=== PATIENT | male | born 1980 | race Caucasian/White ===

== ENCOUNTER 2021-06-26 00:54 | Emergency (ER) | payer OTHER ==
[~2021-06-26] VITALS: Ht 175.3 cm; Wt 72.7 kg
[2021-06-26 05:12] LABS: CLARITY,URINE CLOUDY (Clear); COLOR,URINE YELLOW (Yellow); GLUCOSE, URINE NEGATIVE (Neg); KETONES,URINE NEGATIVE (Neg); LEUKOCYTE ESTERASE ,URINE NEGATIVE (Neg); NITRITES, URINE NEGATIVE (Neg); OCCULT BLOOD,URINE SMALL (Neg); PH,URINE 8.5 (4.8-8.0); PROTEIN,URINE NEGATIVE (Neg); UROBILINOGEN,URINE 0.2 E.U/dL (0.2-1.0)
[2021-06-26 05:21] LABS: UA COLLECTION TYPE CLN CATCH MIDSTREAM
[2021-06-26 05:22] LABS: AMORPHOUS PHOSPHATES 3+; BACTERIA,URINE FEW /HPF (Neg); SQUAMOUS EPITHELIAL CELL,UR FEW /LPF (FEW); WBC,URINE NONE SEEN /HPF (0-4)
[2021-06-26 05:38] LABS: BASOPHILS % (AUTO) 0.1 % (0-1); EOSINOPHILS % (AUTO) 0.3 % (0-6); HEMOGLOBIN 12.6 g/dl (14.0-17.9); LYMPHOCYTES # (AUTO) 0.8 X10'3 (1.1-4.8); LYMPHOCYTES % (AUTO) 6.9 % (21-51); MEAN CORPUSCULAR HEMOGLOBIN 30.5 PG (27.0-31.0); MEAN CORPUSCULAR HGB CONC 33.3 g/dL (33.0-36.5); MEAN CORPUSCULAR VOLUME 91.5 FL (78-98); MEAN PLATELET VOLUME 8.7 FL (7.4-10.4); MONOCYTES # (AUTO) 0.5 X10'3 (0-0.9); MONOCYTES % (AUTO) 4.1 % (2-12); NEUTROPHILS # (AUTO) 10.7 X10'3 (1.8-7.7); NEUTROPHILS % (AUTO) 88.6 % (42-75); PLATELET COUNT 257 X10'3 (140-440); RED BLOOD COUNT 4.15 X10'6 (4.70-6.10); RED CELL DISTRIBUTION WIDTH 14.4 % (11.5-14.5)
[2021-06-26] MEDS ORDERED: normal saline 1000ML IV soln IVB ONE (05:45)
[2021-06-26] MEDS ORDERED: pantoprazole IV 40 MG in normal saline 100ml IV soln 100 ML IV ONE (05:45)
[2021-06-26 05:50] LABS: ALANINE AMINOTRANSFERASE 66 U/L (12-78); ALBUMIN 3.8 G/DL (3.4-5.0); ALBUMIN/GLOBULIN RATIO 1.2 (1.1-1.5); ALKALINE PHOSPHATASE 92 IU/L (46-116); ANION GAP 4 (8-16); ASPARTATE AMINO TRANSFERASE 28 U/L (10-37); BILIRUBIN,TOTAL 0.6 MG/DL (0.1-1.0); BLOOD UREA NITROGEN 16 MG/DL (7-18); BUN/CREATININE RATIO 23.5 (5.4-32.0); CHLORIDE 108 MMOL/L (99-107); CREATININE 0.68 MG/DL (0.60-1.10); GLUCOSE 109 MG/DL (70-104); LIPASE 107 U/L (73-393); POTASSIUM 4.2 MMOL/L (3.5-5.1); SODIUM 143 MMOL/L (135-145); TOTAL CARBON DIOXIDE 31.3 MMOL/L (24-32); TOTAL PROTEIN 6.9 G/DL (6.4-8.2); eGFR > 90 ML/MIN
[2021-06-26] MEDS ORDERED: pantoprazole 40MG/NS 100ML BAG 100 ML IV ONE (05:50)
[2021-06-26] MEDS ORDERED: PANT-47 PO (05:56)
[2021-06-26] MEDS ORDERED: ONDA8TAB13 PO (05:56)
[2021-06-26 07:15] VITALS: BP 128/77
== END 2021-06-26 07:21 | disposition home or self-care (01) ==
LOC: ER 00:55
DX: R10.12 Left upper quadrant pain (principal); R10.13 Epigastric pain; R11.10 Vomiting, unspecified; F12.90 Cannabis use, unspecified, uncomplicated; Z79.899 Other long term (current) drug therapy
CPT/HCPCS: 36415; 71045; 80053; 81001; 83690; 85025; 93005; 96365; 99285; C9113; J7030

== ENCOUNTER 2021-07-03 20:27 | Emergency (ER) | payer OTHER ==
[~2021-07-03] VITALS: Ht 175.3 cm; Wt 77.3 kg
[~2021-07-03 20:27] MED LIST: ONDA8TAB13 PO; PANT-47 PO
[2021-07-03 21:04] LABS: BASOPHILS % (AUTO) 0.2 % (0-1); EOSINOPHILS # (AUTO) 0.2 X10'3 (0-0.9); EOSINOPHILS % (AUTO) 1.6 % (0-6); HEMATOCRIT 40.5 % (42.0-52.0); HEMOGLOBIN 13.6 g/dl (14.0-17.9); LYMPHOCYTES # (AUTO) 1.6 X10'3 (1.1-4.8); LYMPHOCYTES % (AUTO) 13.7 % (21-51); MEAN CORPUSCULAR HGB CONC 33.7 g/dL (33.0-36.5); MONOCYTES # (AUTO) 0.7 X10'3 (0-0.9); MONOCYTES % (AUTO) 5.5 % (2-12); NEUTROPHILS # (AUTO) 9.5 X10'3 (1.8-7.7); PLATELET COUNT 297 X10'3 (140-440); RED CELL DISTRIBUTION WIDTH 13.9 % (11.5-14.5)
[2021-07-03 21:17] LABS: ALANINE AMINOTRANSFERASE 39 U/L (12-78); ALBUMIN 4.3 G/DL (3.4-5.0); ALBUMIN/GLOBULIN RATIO 1.3 (1.1-1.5); ALKALINE PHOSPHATASE 101 IU/L (46-116); ANION GAP 4 (8-16); ASPARTATE AMINO TRANSFERASE 21 U/L (10-37); BILIRUBIN,TOTAL 0.5 MG/DL (0.1-1.0); BLOOD UREA NITROGEN 18 MG/DL (7-18); BUN/CREATININE RATIO 18.8 (5.4-32.0); CALCIUM 9.3 MG/DL (8.5-10.1); CHLORIDE 106 MMOL/L (99-107); CREATININE 0.96 MG/DL (0.60-1.10); GLUCOSE 108 MG/DL (70-104); LIPASE < 50 U/L (73-393); POTASSIUM 3.9 MMOL/L (3.5-5.1); SODIUM 140 MMOL/L (135-145); TOTAL CARBON DIOXIDE 29.9 MMOL/L (24-32); TOTAL PROTEIN 7.6 G/DL (6.4-8.2); eGFR 86 ML/MIN
[2021-07-03] MEDS ORDERED: morphine 2 MG/ML inj. syringe IV ONE (23:05)
[2021-07-04 00:45] LABS: CLARITY,URINE CLOUDY (Clear); COLOR,URINE YELLOW (Yellow); GLUCOSE, URINE NEGATIVE (Neg); KETONES,URINE >=80 mg/dl (Neg); LEUKOCYTE ESTERASE ,URINE NEGATIVE (Neg); NITRITES, URINE NEGATIVE (Neg); OCCULT BLOOD,URINE LARGE (Neg); PROTEIN,URINE TRACE mg/dl (Neg); UROBILINOGEN,URINE 0.2 E.U/dL (0.2-1.0)
[2021-07-04 00:52] LABS: UA COLLECTION TYPE URINAL
[2021-07-04 00:54] LABS: RBC,URINE TNTC /HPF (0-2)
[2021-07-04 00:55] LABS: BACTERIA,URINE 1+ /HPF (Neg); MUCUS STRANDS FEW /LPF (Neg); SQUAMOUS EPITHELIAL CELL,UR FEW /LPF (FEW)
[2021-07-04 00:56] LABS: AMORPHOUS PHOSPHATES 1+
[2021-07-04] MEDS ORDERED: ketorolac trometh. 30mg/ml inj. IV ONE (01:25)
[2021-07-04] MEDS ORDERED: cefTRIAXone 1g/NS 100ml IVPB 100 ML IV ONE (02:05)
[2021-07-04] MEDS ORDERED: CEPH-585 PO (02:57)
[2021-07-04] MEDS ORDERED: HYDR-3965 PO (02:57)
[2021-07-04 03:38] VITALS: BP 128/79
== END 2021-07-04 03:40 | disposition home or self-care (01) ==
LOC: ER 20:29
DX: N20.0 Calculus of kidney (principal)
CPT/HCPCS: 36415; 74176; 80053; 81001; 83690; 85025; 87088; 96365; 96375; 99284; J0696; J1885; J2270

== ENCOUNTER 2021-07-07 02:15 | Inpatient (IN) | payer OTHER ==
[2021-07-07] VITALS (14 sets, daily range): BP systolic 122–172; BP diastolic 62–87
[~2021-07-07] VITALS: Ht 170.2 cm; Wt 72.7 kg
[~2021-07-07 02:15] MED LIST changes: +CEPH-585 PO; +HYDR-3965 PO
[2021-07-07] MEDS ORDERED: ondansetron/PF 4mg/2ml inj IV ONE (02:45)
[2021-07-07] MEDS ORDERED: normal saline 1000ml 1,000 ML IV ONE (02:45)
[2021-07-07] MEDS ORDERED: morphine 4 MG/ML inj SYRINge IV ONE ×2 (02:45→03:15)
[2021-07-07 03:13] LABS: BASOPHILS # (AUTO) 0.1 X10'3 (0-0.2); BASOPHILS % (AUTO) 1.2 % (0-1); EOSINOPHILS # (AUTO) 0.3 X10'3 (0-0.9); EOSINOPHILS % (AUTO) 3.1 % (0-6); HEMATOCRIT 39.8 % (42.0-52.0); HEMOGLOBIN 13.5 g/dl (14.0-17.9); LYMPHOCYTES # (AUTO) 2.6 X10'3 (1.1-4.8); LYMPHOCYTES % (AUTO) 31.5 % (21-51); MEAN CORPUSCULAR HEMOGLOBIN 31.2 PG (27.0-31.0); MEAN CORPUSCULAR HGB CONC 33.9 g/dL (33.0-36.5); MEAN CORPUSCULAR VOLUME 91.9 FL (78-98); MEAN PLATELET VOLUME 9.4 FL (7.4-10.4); MONOCYTES # (AUTO) 0.8 X10'3 (0-0.9); MONOCYTES % (AUTO) 9.1 % (2-12); NEUTROPHILS # (AUTO) 4.6 X10'3 (1.8-7.7); NEUTROPHILS % (AUTO) 55.1 % (42-75); PLATELET COUNT 291 X10'3 (140-440); RED BLOOD COUNT 4.32 X10'6 (4.70-6.10); WHITE BLOOD COUNT 8.3 X10'3 (4.5-11.0)
[2021-07-07 03:28] LABS: ALANINE AMINOTRANSFERASE 27 U/L (12-78); ALBUMIN 3.9 G/DL (3.4-5.0); ALBUMIN/GLOBULIN RATIO 1.2 (1.1-1.5); ALKALINE PHOSPHATASE 101 IU/L (46-116); ANION GAP 13 (8-16); ASPARTATE AMINO TRANSFERASE 12 U/L (10-37); BILIRUBIN,TOTAL 0.3 MG/DL (0.1-1.0); BLOOD UREA NITROGEN 15 MG/DL (7-18); BUN/CREATININE RATIO 15.6 (5.4-32.0); CHLORIDE 104 MMOL/L (99-107); CREATININE 0.96 MG/DL (0.60-1.10); GLUCOSE 104 MG/DL (70-104); POTASSIUM 3.3 MMOL/L (3.5-5.1); SODIUM 141 MMOL/L (135-145); TOTAL CARBON DIOXIDE 24.4 MMOL/L (24-32); TOTAL PROTEIN 7.2 G/DL (6.4-8.2); eGFR 86 ML/MIN
[2021-07-07] MEDS ORDERED: ketorolac trometh. 30mg/ml inj. IV ONE (03:30)
[2021-07-07] MEDS ORDERED: LORazepam 2 mg/ml vial IV ONE (03:30)
[2021-07-07] MEDS ORDERED: fentaNYL/PF 50MCG/1 ML 2ML syringe IV ONE (03:30)
[2021-07-07 05:01] LABS: CLARITY,URINE CLOUDY (Clear); COLOR,URINE YELLOW (Yellow); GLUCOSE, URINE NEGATIVE (Neg); KETONES,URINE NEGATIVE (Neg); LEUKOCYTE ESTERASE ,URINE NEGATIVE (Neg); NITRITES, URINE NEGATIVE (Neg); OCCULT BLOOD,URINE SMALL (Neg); PH,URINE 7.5 (4.8-8.0); PROTEIN,URINE NEGATIVE (Neg); UROBILINOGEN,URINE 0.2 E.U/dL (0.2-1.0)
[2021-07-07 05:16] LABS: UA COLLECTION TYPE NON-SPECIFIED
[2021-07-07 05:17] LABS: BACTERIA,URINE FEW /HPF (Neg); MUCUS STRANDS NONE SEEN /LPF (Neg); SQUAMOUS EPITHELIAL CELL,UR NONE SEEN /LPF (FEW); WBC,URINE 0-4 /HPF (0-4)
[2021-07-07 05:18] LABS: AMORPHOUS PHOSPHATES 2+
[2021-07-07] MEDS ORDERED: magnesium hydroxide 30ml (MOM) UD suspension PO PRN (07:55)
[2021-07-07] MEDS ORDERED: mag hydrox/Alum hydrox/simeth 30ml oral suspension PO PRN (07:55)
[2021-07-07] MEDS ORDERED: acetaminophen 325mg tablet PO PRN ×2 (07:55)
[2021-07-07] MEDS ORDERED: morphine 2 MG/ML inj. syringe IV PRN ×3 (07:55→13:10)
[2021-07-07] MEDS ORDERED: metoclopramide 5 mg/ml inj IV PRN (07:55)
[2021-07-07] MEDS ORDERED: HYDROcodone/acetaminophen 5mg/325mg tablet PO PRN (07:55)
--- NOTE | 2021-07-07 10:11 | NUR ---
pt going for sx at 1200 pm today ,npo since last night.
[2021-07-07] MEDS ORDERED: HYDR-3964 PO (10:39)
[2021-07-07] MEDS ORDERED: CEPH250T PO (10:39)
[2021-07-07] MEDS ORDERED: PANT40TA54 PO (10:39)
[2021-07-07] MEDS ORDERED: ONDA8TAB13 PO (10:40)
[2021-07-07] MEDS: docusate sod 100mg capsule PO SCH ×2 (10:48→20:00)
[2021-07-07] MEDS: ringers solution, lacted 1,000 ML IV SCH (10:57)
[2021-07-07] MEDS: normal saline 1000ml 1,000 ML IV SCH ×2 (10:57→15:05)
[2021-07-07] MEDS ORDERED: famotidine/PF 10 mg/ml inj IV ONE (11:00)
--- NOTE | 2021-07-07 11:11 | NUR ---
dr solorio gave verbal order for dilaudid 0.5 mg iv q2 hr prn for pain .informed pt is going for surgery at 1200 pm.
--- NOTE | 2021-07-07 11:35 | NUR ---
TRIED TO GIVE REPORT TO [facility] BUT NO ONE HAS ANSWERED THE CALL.
--- NOTE | 2021-07-07 11:40 | NUR ---
PT WENT TO [facility] ,CALLED PHARMACY AND SPOKE TO MAC AND INFORMED TO SENT THE MEDS UPSTAIRS TO [facility] PT IS NOT HERE.
[2021-07-07] MEDS ORDERED: iohexol 300 MG/1 ML 50ml polymer ONE (12:00)
[2021-07-07] MEDS ORDERED: midazolam 1 mg/ML 2ml injection ONE (12:25)
[2021-07-07] MEDS ORDERED: FENTANYL CITRATE/PF 50 MCG/1 ML VIAL ONE (12:25)
[2021-07-07] MEDS ORDERED: propofol inj 20 ML IV ONE (12:27)
--- NOTE | 2021-07-07 13:04 | NUR ---
Received from OR via JOANIE , accompanied by Anesthesiologist JESSICA and report given by Anesthesiolgist. PATIENT WITH 18G PIV IN RIGHT AC. VSS. 10L MASK ON WITH 100% SATURATIONS. Addendum: 07/07/21 at 1312 by Shreyas Rosario RN RN Amended: Links added.
[2021-07-07] MEDS ORDERED: morphine 4 MG/ML inj SYRINge IV PRN (13:10)
[2021-07-07] MEDS ORDERED: proCHLORperazine 10 MG/2 ml inj IV PRN (13:10)
[2021-07-07] MEDS ORDERED: meperidine/PF 25mg/ml syringe IV PRN ×3 (13:10)
[2021-07-07] MEDS ORDERED: ringers solution, lacted 1,000 ML IV SCH (13:10)
[2021-07-07] MEDS ORDERED: ondansetron/PF 4mg/2ml inj IV PRN (13:10)
--- NOTE | 2021-07-07 14:36 | NUR ---
Patient in room ED 10. I have received report from Shreyas GILLIAM and had the opportunity to ask questions and awaiting patients arrival
--- NOTE | 2021-07-07 14:39 | NUR ---
TRANSFER: PATIENT HAS MET ALL CRITERIA FOR TRANSFER TO THE SURGICAL/PAPI/PCU/ORTHO/ICU FLOOR. VSS. DRESSINGS INTACT. BED LOW, CALL LIGHT PRESENT AND 2 RAILS UP. RN PRESENT TO ACCEPT CARE OF PATIENT AND REPORT HAS BEEN CALLED. PALL QUESTIONS ANSWERED TO ACCEPTING RN. MANE GONZALES TOOK PATIENT TO SURGICAL FLOOR WITH HIS ONE BAG OF LABELED BELONGINGS. VSS. Addendum: 07/07/21 at 1450 by Shreyas Rosario RN, RN Amended: Links added.
--- NOTE | 2021-07-07 15:01 | NUR ---
patient arrived on floor with pain 8/10. Voiding red tinged urine very painful to void. commenced on post op vitals IV to Right AC CDI.
[2021-07-07] MEDS: ondansetron/PF 4mg/2ml inj IV PRN (15:20)
--- NOTE | 2021-07-07 15:29 | NUR ---
morphine 4mg given for pain 10/10 and zofran for nausea. spoke with Dr Packer [facility] regards pain control. OK to give dilaudid if morphine is ineffective.
[2021-07-07] MEDS: HYDROmorphone inj. 0.5 MG/0.5 ML DISP.SYRIN IV PRN ×2 (15:52→20:24)
[2021-07-07] MEDS: HYDROcodone/acetaminophen 10/325mg tab PO PRN (17:43)
--- NOTE | 2021-07-07 18:40 | NUR ---
patient given dilaudid and norco for pain see emar. Pain increses when voiding . urine remains reddish color. Report given to Candelaria GILLIAM
[2021-07-08] VITALS: BP 151/81
[2021-07-08] MEDS: HYDROcodone/acetaminophen 10/325mg tab PO PRN (00:57)
[2021-07-08] MEDS: normal saline 1000ml 1,000 ML IV SCH ×2 (04:16→13:55)
[2021-07-08] MEDS: ringers solution, lacted 1,000 ML IV SCH (05:23)
[2021-07-08] MEDS: HYDROmorphone inj. 0.5 MG/0.5 ML DISP.SYRIN IV PRN ×2 (05:24→09:54)
--- NOTE | 2021-07-08 06:46 | NUR ---
Patient in room [facility]. I have received report from Candelaria GILLIAM and had the opportunity to ask questions and assume patient care.
[2021-07-08 07:12] VITALS: BP 124/72
[2021-07-08] MEDS: docusate sod 100mg capsule PO SCH ×3 (07:28→19:44)
[2021-07-08 07:33] LABS: BASOPHILS % (AUTO) 0.3 % (0-1); EOSINOPHILS % (AUTO) 0.2 % (0-6); HEMATOCRIT 36.4 % (42.0-52.0); HEMOGLOBIN 12.3 g/dl (14.0-17.9); LYMPHOCYTES # (AUTO) 1.6 X10'3 (1.1-4.8); LYMPHOCYTES % (AUTO) 14.1 % (21-51); MEAN CORPUSCULAR HEMOGLOBIN 31.2 PG (27.0-31.0); MEAN CORPUSCULAR HGB CONC 33.7 g/dL (33.0-36.5); MEAN CORPUSCULAR VOLUME 92.3 FL (78-98); MEAN PLATELET VOLUME 9.8 FL (7.4-10.4); MONOCYTES # (AUTO) 0.8 X10'3 (0-0.9); MONOCYTES % (AUTO) 7.3 % (2-12); NEUTROPHILS # (AUTO) 9.1 X10'3 (1.8-7.7); NEUTROPHILS % (AUTO) 78.1 % (42-75); PLATELET COUNT 250 X10'3 (140-440); RED BLOOD COUNT 3.94 X10'6 (4.70-6.10); RED CELL DISTRIBUTION WIDTH 14.4 % (11.5-14.5); WHITE BLOOD COUNT 11.6 X10'3 (4.5-11.0)
[2021-07-08 08:06] LABS: ALBUMIN 3.3 G/DL (3.4-5.0); ANION GAP 7 (8-16); BLOOD UREA NITROGEN 9 MG/DL (7-18); CALCIUM 8.3 MG/DL (8.5-10.1); CHLORIDE 108 MMOL/L (99-107); CREATININE 0.75 MG/DL (0.60-1.10); GLUCOSE 89 MG/DL (70-104); POTASSIUM 3.4 MMOL/L (3.5-5.1); SODIUM 142 MMOL/L (135-145); TOTAL CARBON DIOXIDE 27.3 MMOL/L (24-32); eGFR > 90 ML/MIN
[2021-07-08] MEDS ORDERED: potassium Cl 20 mEq SR tablet PO STA (10:26)
[2021-07-08] MEDS ORDERED: morphine 4 MG/ML inj SYRINge IM ONE (10:30)
[2021-07-08] MEDS ORDERED: morphine 4 MG/ML inj SYRINge IV ONE (10:45)
--- NOTE | 2021-07-08 11:05 | NUR ---
Malnutrition consult: Pt reports 2-13 lb wt loss with decreased appetite per malnutrition risk screen with RN. Current documented wt isn't scaled though is stable with recent wt hx in EMR. Pt admit for nephrolithiasis, POD #1 s/p cystoscopy with bilateral ureteral stent placement, documented with 10/10 pain. Currently on a regular diet, documented to have refused first meal post-op. Pt with no documented decrease in muscle strength or edema. Pt currently lacks a minimum of two criteria for malnutrition. Will continue to follow and further monitor qualifying criteria for malnutrition. Addendum: 07/08/21 at [address] Amended: Links added.
--- NOTE | 2021-07-08 11:13 | NUR ---
PAGER ID: [phone] MESSAGE: Erich Surg Re: 350b Nicole, Patient states no nausea pain down from 10 to 7, and patient states works much better. Thanks Erich
[2021-07-08 11:47] VITALS: BP 147/66
[2021-07-08] MEDS: cefTRIAXone 1g/NS 100ml IVPB 100 ML IV SCH (12:46)
[2021-07-08] MEDS: morphine 4 MG/ML inj SYRINge IV PRN ×4 (14:02→22:47)
[2021-07-08] MEDS: ondansetron/PF 4mg/2ml inj IV PRN (16:28)
--- NOTE | 2021-07-08 18:15 | NUR ---
Patient in room [facility]. I have received report from MANE Jung and had the opportunity to ask questions and assume patient care.
--- NOTE | 2021-07-08 18:29 | NUR ---
Problems reprioritized. Patient report given, questions answered & plan of care reviewed with Ayesha GILLIAM.
[2021-07-08 20:00] VITALS: BP 138/76
[2021-07-09 00:01] VITALS: BP 138/78
[2021-07-09] MEDS: normal saline 1000ml 1,000 ML IV SCH ×2 (00:24→09:06)
[2021-07-09] MEDS: morphine 4 MG/ML inj SYRINge IV PRN ×3 (00:45→05:40)
[2021-07-09] MEDS: ringers solution, lacted 1,000 ML IV SCH (02:20)
[2021-07-09] MEDS: ondansetron/PF 4mg/2ml inj IV PRN (03:19)
--- NOTE | 2021-07-09 06:48 | NUR ---
Problems reprioritized. Patient report given, questions answered & plan of care reviewed with MANE Shah.
[2021-07-09 07:00] VITALS: BP 151/85
--- NOTE | 2021-07-09 07:02 | NUR ---
Patient in room [facility]. I have received report from Ayesha GILLIAM and had the opportunity to ask questions and assume patient care.
[2021-07-09] MEDS: docusate sod 100mg capsule PO SCH (08:00)
[2021-07-09] MEDS: cefTRIAXone 1g/NS 100ml IVPB 100 ML IV SCH (08:02)
[2021-07-09 08:45] LABS: BASOPHILS % (AUTO) 0.3 % (0-1); EOSINOPHILS % (AUTO) 0.5 % (0-6); HEMATOCRIT 38.8 % (42.0-52.0); HEMOGLOBIN 12.9 g/dl (14.0-17.9); LYMPHOCYTES # (AUTO) 1.7 X10'3 (1.1-4.8); LYMPHOCYTES % (AUTO) 19.5 % (21-51); MEAN CORPUSCULAR HEMOGLOBIN 30.6 PG (27.0-31.0); MEAN CORPUSCULAR HGB CONC 33.3 g/dL (33.0-36.5); MEAN PLATELET VOLUME 9.7 FL (7.4-10.4); MONOCYTES # (AUTO) 0.8 X10'3 (0-0.9); MONOCYTES % (AUTO) 8.5 % (2-12); NEUTROPHILS # (AUTO) 6.4 X10'3 (1.8-7.7); NEUTROPHILS % (AUTO) 71.2 % (42-75); PLATELET COUNT 253 X10'3 (140-440); RED BLOOD COUNT 4.22 X10'6 (4.70-6.10); RED CELL DISTRIBUTION WIDTH 14.1 % (11.5-14.5); WHITE BLOOD COUNT 8.9 X10'3 (4.5-11.0)
[2021-07-09 08:59] LABS: ALBUMIN 3.6 G/DL (3.4-5.0); BLOOD UREA NITROGEN 9 MG/DL (7-18); BUN/CREATININE RATIO 12.2 (5.4-32.0); CALCIUM 8.5 MG/DL (8.5-10.1); CHLORIDE 103 MMOL/L (99-107); CREATININE 0.74 MG/DL (0.60-1.10); GLUCOSE 85 MG/DL (70-104); POTASSIUM 3.9 MMOL/L (3.5-5.1); SODIUM 142 MMOL/L (135-145); eGFR > 90 ML/MIN
[2021-07-09 09:00] LABS: ANION GAP 10 (8-16); TOTAL CARBON DIOXIDE 29.3 MMOL/L (24-32)
[2021-07-09] MEDS: HYDROcodone/acetaminophen 10/325mg tab PO PRN ×2 (09:04→13:27)
[2021-07-09 11:00] VITALS: BP 141/72
[2021-07-09] MEDS ORDERED: HYDROcodone/acetaminophen 10/325mg tab PO PRN (11:15)
[2021-07-09] MEDS ORDERED: ONDA4TAB12 PO (11:33)
[2021-07-09] MEDS ORDERED: HYDR-3965 PO (11:33)
[2021-07-09] MEDS ORDERED: SULF1TAB49 PO (13:00)
--- NOTE | 2021-07-09 14:10 | NUR ---
PT DC TO HOME WITH . PT IS A&O X4 AND IN NO APPARENT DISTRESS. PT VERBALIZES UNDERSTANDING OF ALL DC ORDERS. PT KNOWS THE IMPORTANCE OF FOLLOWING UP WITH DR. HERNANDEZ. PT'S IV CATH WAS REMOVED INTACT. PT GOT DRESSED, TOOK HIS [employer] AND PHONE AND WAS WHEELED TO THE FRONT WHERE HIS TOOK HIM HOME.
[2021-07-10] MEDS ORDERED: OXYB5TAB16 PO (09:36)
[2021-07-10] MEDS ORDERED: OXYC-150 PO (23:03)
== END 2021-07-09 14:10 | disposition home or self-care (01) | DRG 661 ==
LOC: ER 02:15 → ED HOLD 07:53 → SUR 3N 15:25
PROVIDERS: ADMIT Internal Medicine; ATTEND Internal Medicine
PROC: 0T788DZ Dilation of Bilateral Ureters with Intraluminal Device, Via Natural or Artificial Opening Endoscopic (ICD-10-PCS; principal; 2021-07-07 12:17)
DX: N13.2 Hydronephrosis with renal and ureteral calculous obstruction (principal); Z20.822 Contact with and (suspected) exposure to COVID-19; F12.90 Cannabis use, unspecified, uncomplicated; Z79.899 Other long term (current) drug therapy
CPT/HCPCS: 36415; 74176; 76000; 80048; 80053; 81001; 85025; 87635; 96361; 96374; 96375; 99285; A4618; C1758; C1769; C2617; G0378; J0696; J1170; J1885; J2060; J2175; J2250; J2270; J2405; J2704; J2765; J3010; J3490; J7030; J7120; Q9967

== ENCOUNTER 2021-07-10 06:33 | Emergency (ER) | payer OTHER ==
[~2021-07-10] VITALS: Ht 172.7 cm; Wt 73.0 kg
[~2021-07-10 06:33] MED LIST changes: -CEPH-585 PO; +HYDR-3964 PO; +ONDA4TAB12 PO; -PANT-47 PO; +PANT40TA54 PO; +SULF1TAB49 PO
[2021-07-10] MEDS ORDERED: ketorolac trometh. 30mg/ml inj. IV ONE (07:10)
[2021-07-10] MEDS ORDERED: normal saline 1000ML IV soln IVB ONE ×2 (07:10)
[2021-07-10] MEDS ORDERED: morphine 10mg/ml inj. IV ONE (07:10)
[2021-07-10] MEDS ORDERED: diphenhydrAMINE 50 mg/ml inj IV ONE (07:10)
[2021-07-10] MEDS ORDERED: metoclopramide 5 mg/ml inj IV ONE (07:10)
[2021-07-10 07:39] LABS: BASOPHILS # (AUTO) 0.1 X10'3 (0-0.2); BASOPHILS % (AUTO) 0.6 % (0-1); EOSINOPHILS % (AUTO) 0.1 % (0-6); HEMATOCRIT 42.1 % (42.0-52.0); HEMOGLOBIN 14.5 g/dl (14.0-17.9); LYMPHOCYTES # (AUTO) 0.8 X10'3 (1.1-4.8); LYMPHOCYTES % (AUTO) 6.8 % (21-51); MEAN CORPUSCULAR HEMOGLOBIN 31.3 PG (27.0-31.0); MEAN CORPUSCULAR HGB CONC 34.3 g/dL (33.0-36.5); MEAN PLATELET VOLUME 9.7 FL (7.4-10.4); MONOCYTES # (AUTO) 0.6 X10'3 (0-0.9); MONOCYTES % (AUTO) 5.1 % (2-12); NEUTROPHILS # (AUTO) 10.9 X10'3 (1.8-7.7); NEUTROPHILS % (AUTO) 87.4 % (42-75); PLATELET COUNT 302 X10'3 (140-440); RED BLOOD COUNT 4.63 X10'6 (4.70-6.10); RED CELL DISTRIBUTION WIDTH 14.1 % (11.5-14.5); WHITE BLOOD COUNT 12.5 X10'3 (4.5-11.0)
[2021-07-10 07:58] LABS: ALANINE AMINOTRANSFERASE 31 U/L (12-78); ALBUMIN 4.3 G/DL (3.4-5.0); ALBUMIN/GLOBULIN RATIO 1.2 (1.1-1.5); ALKALINE PHOSPHATASE 98 IU/L (46-116); ANION GAP 14 (8-16); ASPARTATE AMINO TRANSFERASE 19 U/L (10-37); BLOOD UREA NITROGEN 12 MG/DL (7-18); BUN/CREATININE RATIO 12.6 (5.4-32.0); CALCIUM 9.7 MG/DL (8.5-10.1); CHLORIDE 103 MMOL/L (99-107); CREATININE 0.95 MG/DL (0.60-1.10); GLUCOSE 116 MG/DL (70-104); LIPASE 62 U/L (73-393); POTASSIUM 3.6 MMOL/L (3.5-5.1); SODIUM 141 MMOL/L (135-145); TOTAL CARBON DIOXIDE 23.9 MMOL/L (24-32); TOTAL PROTEIN 7.8 G/DL (6.4-8.2); eGFR 87 ML/MIN
[2021-07-10 08:14] LABS: CLARITY,URINE BLOODY (Clear); COLOR,URINE RED (Yellow); UA COLLECTION TYPE VOIDED
[2021-07-10 08:19] LABS: BACTERIA,URINE FEW /HPF (Neg); MUCUS STRANDS NONE SEEN /LPF (Neg); RBC,URINE TNTC /HPF (0-2); SQUAMOUS EPITHELIAL CELL,UR NONE SEEN /LPF (FEW)
[2021-07-10] MEDS ORDERED: OXYB5TAB16 PO (09:36)
[2021-07-10 10:53] VITALS: BP 143/82
[2021-07-10] MEDS ORDERED: OXYC-150 PO (23:03)
== END 2021-07-10 10:54 | disposition home or self-care (01) ==
LOC: ER 06:34
DX: N20.0 Calculus of kidney (principal); Z87.442 Personal history of urinary calculi; F12.10 Cannabis abuse, uncomplicated; Z79.899 Other long term (current) drug therapy
CPT/HCPCS: 36415; 80053; 81001; 83690; 84145; 85025; 87088; 96361; 96374; 96375; 99284; J1200; J1885; J2274; J2765; J7030

== ENCOUNTER 2021-07-10 18:54 | Emergency (ER) | payer OTHER ==
[~2021-07-10] VITALS: Ht 172.7 cm; Wt 71.2 kg
[~2021-07-10 18:54] MED LIST changes: +OXYB5TAB16 PO
[2021-07-10] MEDS ORDERED: morphine 4 MG/ML inj SYRINge IV ONE (20:00)
[2021-07-10] MEDS ORDERED: ondansetron/PF 4mg/2ml inj IV ONE (20:00)
[2021-07-10 20:18] LABS: BASOPHILS % (AUTO) 0.3 % (0-1); EOSINOPHILS % (AUTO) 0.1 % (0-6); HEMATOCRIT 39.6 % (42.0-52.0); HEMOGLOBIN 13.5 g/dl (14.0-17.9); LYMPHOCYTES # (AUTO) 1.5 X10'3 (1.1-4.8); LYMPHOCYTES % (AUTO) 9.5 % (21-51); MEAN CORPUSCULAR HEMOGLOBIN 31.5 PG (27.0-31.0); MEAN CORPUSCULAR HGB CONC 34.1 g/dL (33.0-36.5); MEAN CORPUSCULAR VOLUME 92.4 FL (78-98); MEAN PLATELET VOLUME 8.8 FL (7.4-10.4); MONOCYTES % (AUTO) 6.5 % (2-12); NEUTROPHILS # (AUTO) 13.2 X10'3 (1.8-7.7); NEUTROPHILS % (AUTO) 83.6 % (42-75); PLATELET COUNT 289 X10'3 (140-440); RED BLOOD COUNT 4.28 X10'6 (4.70-6.10); WHITE BLOOD COUNT 15.8 X10'3 (4.5-11.0)
[2021-07-10 20:19] LABS: COLOR,URINE RED (Yellow); UA COLLECTION TYPE CLN CATCH MIDSTREAM
[2021-07-10 20:20] LABS: CLARITY,URINE CLOUDY (Clear)
[2021-07-10 20:33] LABS: ALANINE AMINOTRANSFERASE 28 U/L (12-78); ALBUMIN/GLOBULIN RATIO 1.2 (1.1-1.5); ALKALINE PHOSPHATASE 91 IU/L (46-116); ANION GAP 14 (8-16); ASPARTATE AMINO TRANSFERASE 18 U/L (10-37); BILIRUBIN,TOTAL 0.5 MG/DL (0.1-1.0); BLOOD UREA NITROGEN 11 MG/DL (7-18); BUN/CREATININE RATIO 9.9 (5.4-32.0); CHLORIDE 105 MMOL/L (99-107); CREATININE 1.11 MG/DL (0.60-1.10); GLUCOSE 121 MG/DL (70-104); LIPASE 529 U/L (73-393); POTASSIUM 3.1 MMOL/L (3.5-5.1); SODIUM 144 MMOL/L (135-145); TOTAL CARBON DIOXIDE 25.3 MMOL/L (24-32); TOTAL PROTEIN 7.4 G/DL (6.4-8.2); eGFR 73 ML/MIN
[2021-07-10 20:39] LABS: RBC,URINE TNTC /HPF (0-2)
[2021-07-10 20:40] LABS: BACTERIA,URINE FEW /HPF (Neg); WBC,URINE 0-4 /HPF (0-4)
[2021-07-10 20:41] LABS: MUCUS STRANDS NONE SEEN /LPF (Neg); SQUAMOUS EPITHELIAL CELL,UR FEW /LPF (FEW)
[2021-07-10] MEDS ORDERED: HYDROmorphone 1 mg/ml syringe IV ONE (22:30)
[2021-07-10] MEDS ORDERED: normal saline 1000ml 1,000 ML IV ONE (23:00)
[2021-07-10] MEDS ORDERED: OXYC-150 PO (23:03)
[2021-07-11 00:54] VITALS: BP 129/68
== END 2021-07-11 00:57 | disposition home or self-care (01) ==
LOC: ER 18:56
DX: N10 Acute pyelonephritis (principal); N20.0 Calculus of kidney; Z87.442 Personal history of urinary calculi; F12.10 Cannabis abuse, uncomplicated; Z79.899 Other long term (current) drug therapy
CPT/HCPCS: 36415; 74176; 80053; 81001; 83690; 85025; 96361; 96374; 96375; 99284; J1170; J2270; J2405; J7030

== ENCOUNTER 2021-07-26 11:15 | Emergency (ER) | payer MEDICAID, OTHER ==
[~2021-07-26] VITALS: Ht 172.7 cm; Wt 65.9 kg
[~2021-07-26 11:15] MED LIST changes: +OXYC-150 PO
[2021-07-26] MEDS ORDERED: ketorolac trometh. 30mg/ml inj. IV ONE (11:50)
[2021-07-26] MEDS ORDERED: ondansetron/PF 4mg/2ml inj IV ONE (11:50)
[2021-07-26] MEDS ORDERED: normal saline 1000ML IV soln IVB ONE ×2 (11:50→12:30)
[2021-07-26] MEDS ORDERED: morphine 4 MG/ML inj SYRINge IV ONE (11:50)
--- NOTE | 2021-07-26 11:50 | NUR ---
PT PROVIDED WITH U/A CUP FOR SAMPLE.
[2021-07-26 11:52] LABS: BASOPHILS % (AUTO) 0.2 % (0-1); EOSINOPHILS % (AUTO) 0 % (0-6); HEMATOCRIT 43.4 % (42.0-52.0); HEMOGLOBIN 14.6 g/dl (14.0-17.9); LYMPHOCYTES % (AUTO) 8.3 % (21-51); MEAN CORPUSCULAR HEMOGLOBIN 30.8 PG (27.0-31.0); MEAN CORPUSCULAR HGB CONC 33.6 g/dL (33.0-36.5); MEAN CORPUSCULAR VOLUME 91.7 FL (78-98); MEAN PLATELET VOLUME 8.1 FL (7.4-10.4); MONOCYTES # (AUTO) 0.8 X10'3 (0-0.9); NEUTROPHILS # (AUTO) 9.7 X10'3 (1.8-7.7); NEUTROPHILS % (AUTO) 84.5 % (42-75); PLATELET COUNT 459 X10'3 (140-440); RED BLOOD COUNT 4.74 X10'6 (4.70-6.10); RED CELL DISTRIBUTION WIDTH 13.9 % (11.5-14.5); WHITE BLOOD COUNT 11.4 X10'3 (4.5-11.0)
[2021-07-26 12:03] LABS: ALANINE AMINOTRANSFERASE 44 U/L (12-78); ALBUMIN 4.5 G/DL (3.4-5.0); ALBUMIN/GLOBULIN RATIO 1.1 (1.1-1.5); ALKALINE PHOSPHATASE 105 IU/L (46-116); ANION GAP 15 (8-16); ASPARTATE AMINO TRANSFERASE 14 U/L (10-37); BILIRUBIN,TOTAL 1.1 MG/DL (0.1-1.0); BLOOD UREA NITROGEN 29 MG/DL (7-18); CALCIUM 10.7 MG/DL (8.5-10.1); CHLORIDE 97 MMOL/L (99-107); CREATININE 1.38 MG/DL (0.60-1.10); GLUCOSE 130 MG/DL (70-104); POTASSIUM 4.6 MMOL/L (3.5-5.1); SODIUM 136 MMOL/L (135-145); TOTAL CARBON DIOXIDE 24.4 MMOL/L (24-32); TOTAL PROTEIN 8.7 G/DL (6.4-8.2); eGFR 57 ML/MIN
[2021-07-26] MEDS ORDERED: OXYC-138 PO (12:47)
[2021-07-26 13:29] LABS: COLOR,URINE RED (Yellow)
[2021-07-26 13:32] LABS: CLARITY,URINE BLOODY (Clear); UA COLLECTION TYPE VOIDED
[2021-07-26 13:33] LABS: RBC,URINE TNTC /HPF (0-2)
[2021-07-26 13:35] LABS: BACTERIA,URINE 1+ /HPF (Neg); SQUAMOUS EPITHELIAL CELL,UR FEW /LPF (FEW)
[2021-07-26 14:01] VITALS: BP 133/86
== END 2021-07-26 14:40 | disposition home or self-care (01) ==
LOC: ER 11:15
DX: N20.0 Calculus of kidney (principal); R31.9 Hematuria, unspecified; F12.10 Cannabis abuse, uncomplicated; Z79.899 Other long term (current) drug therapy
CPT/HCPCS: 36415; 80053; 81001; 85025; 87088; 96374; 96375; 99283; J1885; J2270; J2405; J7030; 96361